=== PATIENT | female | born 1965 | race Caucasian/White ===

== ENCOUNTER 2018-02-15 22:41 | Emergency (ER) | payer BC, OTHER ==
[2018-02-16] MEDS: ONDANSETRON (ODT) 4 MG TAB ODT (00:15)
[2018-02-16] MEDS: HYDROCODONE/APAP (10/325) TAB PO ×3 (00:19→02:37)
[2018-02-16] MEDS: ACETAMINOPHEN 325 MG TAB PO (00:28)
== END 2018-02-16 02:30 | disposition home or self-care (01) ==
LOC: FTE 22:41
DX: S00.03XA Contusion of scalp, initial encounter (principal); S06.0X0A Concussion without loss of consciousness, initial encounter; S19.9XXA Unspecified injury of neck, initial encounter; E03.9 Hypothyroidism, unspecified; I10 Essential (primary) hypertension; W01.0XXA Fall on same level from slipping, tripping and stumbling without subsequent striking against object, initial encounter; Y92.9 Unspecified place or not applicable; Z79.84 Long term (current) use of oral hypoglycemic drugs
CPT/HCPCS: 70450; 72125; 93005; 99285-25